=== PATIENT | male | born 1960 | race Caucasian/White ===

== ENCOUNTER 2023-01-23 11:40 | Emergency (ER) | payer MEDICAID, OTHER ==
[~2023-01-23] VITALS: Ht 177.8 cm; Wt 81.8 kg
[2023-01-23 11:52] VITALS: BP 142/90; PULSE 97; RESP 16; TEMP 98.5; O2SAT 94
[2023-01-23] MEDS ORDERED: RIFA300C9 PO (16:17)
[2023-01-23] MEDS ORDERED: AMOX-117 PO (16:17)
[2023-01-23] MEDS: amox tr/potassium clavulanate 875/125mg TAB PO ONE (16:34)
[2023-01-23] MEDS: rifampin 300mg capsule PO SCH (16:35)
== END 2023-01-23 16:44 | disposition home or self-care (01) ==
LOC: ER 11:42
DX: L03.116 Cellulitis of left lower limb (principal); M79.672 Pain in left foot; F17.200 Nicotine dependence, unspecified, uncomplicated; F15.90 Other stimulant use, unspecified, uncomplicated; Z91.041 Radiographic dye allergy status; Z79.2 Long term (current) use of antibiotics
CPT/HCPCS: 73630; 99283